=== PATIENT | female | born 1965 | race Caucasian/White ===

== ENCOUNTER → 2018-12-13 | Outpatient (CLI) | payer BC | LOC: MAMMO 14:55 | PROVIDERS: ATTEND Family Medicine | DX: Z12.31 Encounter for screening mammogram for malignant neoplasm of breast (principal) | CPT/HCPCS: 77067 ==

== ENCOUNTER → 2019-01-14 | Outpatient (CLI) | payer BC | LOC: US 13:57 | PROVIDERS: ATTEND Family Medicine | DX: N63.10 Unspecified lump in the right breast, unspecified quadrant (principal) ==

== ENCOUNTER → 2021-08-12 | Outpatient (CLI) | payer BC | LOC: MAMMO 08:51 | PROVIDERS: ATTEND Family Medicine | DX: Z12.31 Encounter for screening mammogram for malignant neoplasm of breast (principal) | CPT/HCPCS: 77067 ==

== ENCOUNTER 2021-11-06 15:19 | Inpatient (IN) | payer BC ==
[2021-11-06] VITALS (15 sets, daily range): BP systolic 80–122; BP diastolic 52–66
[~2021-11-06] VITALS: Ht 162.6 cm; Wt 90.3 kg
[2021-11-06] MEDS ORDERED: SODIUM CHLORIDE 0.9% 1000ML 1,000 ML IV STA (15:21)
[2021-11-06] MEDS ORDERED: CALCIUM GLUCONATE 10% INJ 4.65 MEQ in SODIUM CHLORIDE 0.9% 50ML 50 ML IV ONE (15:30)
[2021-11-06 15:37] LABS: BASOPHILS % 0.3 % (0.0-1.0); EOSINOPHILS # (AUTO) 0.1 (0.0-0.4); EOSINOPHILS % 0.8 % (0.0-6.0); HEMATOCRIT 33.7 % (34.2-44.1); HEMOGLOBIN 10.3 g/dL (12.0-16.0); LYMPHOCYTES # (AUTO) 1.2 (1.0-3.2); LYMPHOCYTES % 13.3 % (18.0-39.1); MEAN CORPUSCULAR HEMOGLOBIN 26.7 pg (28-32); MEAN CORPUSCULAR HGB CONC 30.6 g/dL (31-35); MEAN CORPUSCULAR VOLUME 87.3 fL (81-99); MONOCYTES # (AUTO) 0.4 (0.2-0.8); MONOCYTES % 4.4 % (4.4-11.3); NEUTROPHILS # (AUTO) 7.4 (2.1-6.9); NEUTROPHILS % 80.4 % (38.7-80.0); PLATELET COUNT 253 x10e3/uL (140-360); RED BLOOD COUNT 3.86 x10e6/uL (3.6-5.1); RED CELL DISTRIBUTION WIDTH 14.6 % (11.7-14.4)
[2021-11-06] MEDS ORDERED: SODIUM CHLORIDE 0.9% 1000ML 1,000 ML IV ONE (15:45)
[2021-11-06] MEDS ORDERED: GLUCAGON FOR INJ 1 MG VIAL IV ONE (15:45)
[2021-11-06] MEDS ORDERED: ONDANSETRON HCL INJ 2MG/ML 2ML 2 MG/ML VIAL IV STA (15:53)
[2021-11-06 16:15] LABS: ALBUMIN 3.2 g/dL (3.5-5.0); ANION GAP 16.2 mmol/L (8-16); CALCIUM 8.9 mg/dL (8.4-10.2); CREATININE, SERUM 2.38 mg/dL (0.57-1.11)
[2021-11-06] MEDS ORDERED: INSULIN REGULAR, HUMAN 3ML VL 100 UNIT in SODIUM CHLORIDE 0.9% 99 ML IV SCH ×2 (16:15)
[2021-11-06] MEDS ORDERED: POTASSIUM CHLORIDE 20MEQ/100ML 200 ML IV PRN (16:15)
[2021-11-06] MEDS ORDERED: DEXTROSE 5%/0.45% SOD CHL 1,000 ML IV SCH (16:15)
[2021-11-06] MEDS ORDERED: SODIUM CHLORIDE 0.9% 1000ML 1,000 ML IV SCH (16:15)
[2021-11-06] MEDS ORDERED: MAGNESIUM SULF 1GRAM/DEXTROSE 100 ML IV PRN (16:15)
[2021-11-06 16:19] LABS: CREATINE KINASE MB 0.8 ng/mL (0-5.0); POTASSIUM 6.2 mmol/L (3.5-5.1)
[2021-11-06] MEDS ORDERED: DEXTROSE 50% SYRINGE 50 ML IV STA (16:19)
[2021-11-06] MEDS ORDERED: INSULIN REGULAR, HUMAN 100 UNIT/1 ML IV STA (16:19)
[2021-11-06] MEDS ORDERED: ALBUTEROL SULF 0.083% NEB SOLN 3 ML NEB NEB STA (16:19)
[2021-11-06] MEDS ORDERED: CALCIUM GLUCONATE 10% INJ 0.465 MEQ/ML VIAL IV STA (16:19)
[2021-11-06] MEDS ORDERED: SODIUM BICARBONATE 8.4% INJ 50 ML SYR IV STA (16:19)
[2021-11-06] MEDS: PIPERACILLIN/TAZOBACTAM 3.375 GM in SODIUM CHLORIDE 0.9% 50ML 50 ML IV SCH ×2 (16:43→22:47)
[2021-11-06] MEDS ORDERED: ZOLPIDEM TARTRATE 5 MG TAB PO PRN (18:15)
[2021-11-06] MEDS ORDERED: ONDANSETRON HCL INJ 2MG/ML 2ML 2 MG/ML VIAL IV PRN (18:15)
[2021-11-06] MEDS ORDERED: LOSARTAN POTAS100 MG PO (18:37)
[2021-11-06] MEDS ORDERED: MVI PO (18:37)
[2021-11-06] MEDS ORDERED: COREG12.5 MG PO (18:37)
[2021-11-06] MEDS ORDERED: ROPINIROLE HCL1 MG PO (18:37)
[2021-11-06] MEDS ORDERED: VERAPAMIL 180 MG PO (18:37)
[2021-11-06] MEDS ORDERED: IRON 65 MG PO (18:37)
[2021-11-06] MEDS ORDERED: CRESTOR10 MG PO (18:37)
[2021-11-06] MEDS ORDERED: b12 (18:37)
[2021-11-06] MEDS ORDERED: PLAVIX75 MG PO (18:37)
[2021-11-06] MEDS ORDERED: SODIUM BICARBONATE PO (18:37)
[2021-11-06] MEDS ORDERED: VENLAFAXINE HCL75 MG PO (18:37)
[2021-11-06] MEDS ORDERED: OMEPRAZOLE40 MG PO (18:37)
[2021-11-06] MEDS ORDERED: LORATADINE10 MG PO (18:37)
[2021-11-06 19:17] LABS: ANION GAP 16.4 mmol/L (8-16); CALCIUM 8.7 mg/dL (8.4-10.2); CREATININE, SERUM 2.07 mg/dL (0.57-1.11); MAGNESIUM 2.2 MG/DL (1.3-2.1); POTASSIUM 5.4 mmol/L (3.5-5.1)
[2021-11-06] MEDS: DEXTROSE 5%/0.45% SOD CHL 1,000 ML IV SCH (19:26)
[2021-11-06] MEDS: INSULIN REGULAR, HUMAN 3ML VL 100 UNIT in SODIUM CHLORIDE 0.9% 99 ML IV SCH ×4 (20:05→22:03)
[2021-11-06 20:27] LABS: CREATINE KINASE MB 1.1 ng/mL (0-5.0)
[2021-11-07] VITALS (25 sets, daily range): BP systolic 80–138; BP diastolic 50–91
[2021-11-07] MEDS: ACETAMINOPHEN 325 MG TAB PO PRN (00:24)
[2021-11-07 00:38] LABS: CREATINE KINASE MB 1.2 ng/mL (0-5.0)
[2021-11-07] MEDS: INSULIN REGULAR, HUMAN 3ML VL 100 UNIT in SODIUM CHLORIDE 0.9% 99 ML IV SCH ×6 (02:00→04:05)
[2021-11-07] MEDS: DEXTROSE 5%/0.45% SOD CHL 1,000 ML IV SCH ×3 (03:21→22:58)
[2021-11-07] MEDS: PIPERACILLIN/TAZOBACTAM 3.375 GM in SODIUM CHLORIDE 0.9% 50ML 50 ML IV SCH ×4 (05:00→22:30)
[2021-11-07 05:07] LABS: BASOPHILS % 0.4 % (0.0-1.0); EOSINOPHILS # (AUTO) 0.2 (0.0-0.4); EOSINOPHILS % 2.3 % (0.0-6.0); HEMATOCRIT 29.5 % (34.2-44.1); HEMOGLOBIN 9.2 g/dL (12.0-16.0); LYMPHOCYTES # (AUTO) 1.9 (1.0-3.2); MEAN CORPUSCULAR HEMOGLOBIN 26.6 pg (28-32); MEAN CORPUSCULAR HGB CONC 31.2 g/dL (31-35); MEAN CORPUSCULAR VOLUME 85.3 fL (81-99); MONOCYTES # (AUTO) 0.5 (0.2-0.8); MONOCYTES % 6.3 % (4.4-11.3); NEUTROPHILS # (AUTO) 5.8 (2.1-6.9); NEUTROPHILS % 68.5 % (38.7-80.0); PLATELET COUNT 245 x10e3/uL (140-360); RED BLOOD COUNT 3.46 x10e6/uL (3.6-5.1); RED CELL DISTRIBUTION WIDTH 14.6 % (11.7-14.4)
[2021-11-07 05:51] LABS: ALBUMIN 2.9 g/dL (3.5-5.0); ANION GAP 14.1 mmol/L (8-16); CALCIUM 8.7 mg/dL (8.4-10.2); CREATININE, SERUM 1.98 mg/dL (0.57-1.11); POTASSIUM 4.1 mmol/L (3.5-5.1)
[2021-11-07 10:11] LABS: CREATINE KINASE MB 1.3 ng/mL (0-5.0)
[2021-11-07] MEDS ORDERED: DEXTROSE 50% SYRINGE 50 ML IV PRN (14:15)
[2021-11-07] MEDS ORDERED: INSULIN LISPRO 100 UNIT/1 ML 3ML VIAL SQ ONE (14:30)
[2021-11-07 14:57] LABS: FREE T4 (FREE THYROXINE) 0.94 ng/dL (0.8-1.8); THYROID STIMULATING HORMONE 1.617 uIU/mL (0.350-4.940)
[2021-11-07] MEDS: INSULIN LISPRO 100 UNIT/1 ML 3ML VIAL SQ SCH ×3 (16:30→21:00)
[2021-11-07] MEDS ORDERED: INSULIN GLARGINE 100 UNITS/ML VIAL SQ SCH ×2 (21:00)
[2021-11-07] MEDS: ROPINIROLE HCL 2 MG TAB PO SCH (21:07)
[2021-11-08] VITALS (21 sets, daily range): BP systolic 101–157; BP diastolic 59–76
[2021-11-08] MEDS: PIPERACILLIN/TAZOBACTAM 3.375 GM in SODIUM CHLORIDE 0.9% 50ML 50 ML IV SCH ×4 (05:04→23:03)
[2021-11-08 05:25] LABS: ANION GAP 17.1 mmol/L (8-16); CALCIUM 9.3 mg/dL (8.4-10.2); CREATININE, SERUM 2.15 mg/dL (0.57-1.11); POTASSIUM 5.1 mmol/L (3.5-5.1)
[2021-11-08] MEDS: INSULIN LISPRO 100 UNIT/1 ML 3ML VIAL SQ SCH ×7 (07:40→20:13)
[2021-11-08] MEDS: DEXTROSE 5%/0.45% SOD CHL 1,000 ML IV SCH ×3 (07:42→19:17)
[2021-11-08 15:30] LABS: CLARITY,URINE CLEAR (CLEAR); COLOR,URINE YELLOW (YELLOW); LEUKOCYTE ESTERASE ,URINE NEGATIVE (NEGATIVE); NITRITE,URINE NEGATIVE (NEGATIVE); PROTEIN,URINE DIPSTICK NEGATIVE (NEGATIVE)
[2021-11-08 15:31] LABS: KETONES,URINE NEGATIVE (NEGATIVE); URINE UROBILINOGEN 0.2 mg/dL (0.2 - 1)
[2021-11-08 15:58] LABS: BACTERIA,URINE FEW /HPF; EPITHELIAL CELLS,URINE FEW /LPF; RBC,URINE 0-5 /HPF (0-5); WBC,URINE (MAN) 0-5 /HPF (0-5)
[2021-11-08] MEDS: ACETAMINOPHEN 325 MG TAB PO PRN (19:17)
[2021-11-08] MEDS: ROPINIROLE HCL 2 MG TAB PO SCH (20:10)
[2021-11-08] MEDS ORDERED: INSULIN GLARGINE 100 UNITS/ML VIAL SQ SCH (21:00)
[2021-11-09] VITALS (13 sets, daily range): BP systolic 123–158; BP diastolic 65–95
[2021-11-09] MEDS: PIPERACILLIN/TAZOBACTAM 3.375 GM in SODIUM CHLORIDE 0.9% 50ML 50 ML IV SCH ×4 (05:21→22:24)
[2021-11-09 06:08] LABS: BASOPHILS % 0.5 % (0.0-1.0); EOSINOPHILS # (AUTO) 0.2 (0.0-0.4); EOSINOPHILS % 3.8 % (0.0-6.0); HEMATOCRIT 34.1 % (34.2-44.1); HEMOGLOBIN 10.3 g/dL (12.0-16.0); LYMPHOCYTES # (AUTO) 1.5 (1.0-3.2); LYMPHOCYTES % 25.6 % (18.0-39.1); MEAN CORPUSCULAR HEMOGLOBIN 26.4 pg (28-32); MEAN CORPUSCULAR HGB CONC 30.2 g/dL (31-35); MEAN CORPUSCULAR VOLUME 87.4 fL (81-99); MONOCYTES # (AUTO) 0.5 (0.2-0.8); NEUTROPHILS # (AUTO) 3.6 (2.1-6.9); NEUTROPHILS % 61.9 % (38.7-80.0); PLATELET COUNT 242 x10e3/uL (140-360); RED CELL DISTRIBUTION WIDTH 14.5 % (11.7-14.4)
[2021-11-09 06:52] LABS: CALCIUM 9.1 mg/dL (8.4-10.2); CREATININE, SERUM 1.88 mg/dL (0.57-1.11)
[2021-11-09] MEDS: INSULIN LISPRO 100 UNIT/1 ML 3ML VIAL SQ SCH ×7 (07:47→22:26)
[2021-11-09] MEDS: ACETAMINOPHEN 325 MG TAB PO PRN (07:50)
[2021-11-09] MEDS: DEXTROSE 5%/0.45% SOD CHL 1,000 ML IV SCH (09:30)
[2021-11-09] MEDS: PANTOPRAZOLE SOD 40 MG TABEC PO SCH (11:34)
[2021-11-09] MEDS ORDERED: INSULIN LISPRO 100 UNIT/1 ML 3ML VIAL SQ SCH (16:30)
[2021-11-09] MEDS ORDERED: INSULIN GLARGINE 100 UNITS/ML VIAL SQ SCH (21:00)
[2021-11-09] MEDS: ROPINIROLE HCL 2 MG TAB PO SCH (22:24)
[2021-11-10] VITALS (9 sets, daily range): BP systolic 129–158; BP diastolic 62–80
[2021-11-10] MEDS: PIPERACILLIN/TAZOBACTAM 3.375 GM in SODIUM CHLORIDE 0.9% 50ML 50 ML IV SCH ×4 (06:48→22:30)
[2021-11-10] MEDS: INSULIN LISPRO 100 UNIT/1 ML 3ML VIAL SQ SCH ×7 (07:52→20:16)
[2021-11-10] MEDS: PANTOPRAZOLE SOD 40 MG TABEC PO SCH (07:52)
[2021-11-10] MEDS ORDERED: SIMVASTATIN 20 MG TAB PO SCH (09:00)
[2021-11-10] MEDS: CARVEDILOL 12.5 MG TAB PO SCH ×2 (10:09→16:55)
[2021-11-10] MEDS: LORATADINE 10 MG TAB PO SCH (10:09)
[2021-11-10] MEDS: VENLAFAXINE HCL 75 MG TAB PO SCH ×2 (10:10→16:56)
[2021-11-10] MEDS: CLOPIDOGREL BISULFATE 75 MG TAB PO SCH (10:10)
[2021-11-10 14:55] LABS: ANION GAP 15.7 mmol/L (8-16); CREATININE, SERUM 2.14 mg/dL (0.57-1.11); POTASSIUM 4.7 mmol/L (3.5-5.1)
[2021-11-10] MEDS ORDERED: SODIUM CHLORIDE 0.9% 1000ML 0 ML ONE (16:48)
[2021-11-10] MEDS: SODIUM CHLORIDE 0.45% 1,000 ML IV SCH (16:51)
[2021-11-10] MEDS ORDERED: INSULIN GLARGINE 100 UNITS/ML VIAL SQ SCH (21:00)
[2021-11-10] MEDS: SIMVASTATIN 20 MG TAB PO SCH (22:30)
[2021-11-10] MEDS: ROPINIROLE HCL 2 MG TAB PO SCH (22:30)
[2021-11-10] MEDS: ACETAMINOPHEN 325 MG TAB PO PRN (22:48)
[2021-11-11] VITALS: BP 125/58
[2021-11-11] MEDS: SODIUM CHLORIDE 0.45% 1,000 ML IV SCH (01:31)
[2021-11-11 04:02] VITALS: BP 111/70
[2021-11-11] MEDS: PIPERACILLIN/TAZOBACTAM 3.375 GM in SODIUM CHLORIDE 0.9% 50ML 50 ML IV SCH (05:40)
[2021-11-11 05:49] LABS: BASOPHILS % 0.5 % (0.0-1.0); EOSINOPHILS # (AUTO) 0.3 (0.0-0.4); EOSINOPHILS % 4.4 % (0.0-6.0); HEMATOCRIT 31.5 % (34.2-44.1); HEMOGLOBIN 9.8 g/dL (12.0-16.0); LYMPHOCYTES # (AUTO) 1.6 (1.0-3.2); LYMPHOCYTES % 26.2 % (18.0-39.1); MEAN CORPUSCULAR HEMOGLOBIN 26.4 pg (28-32); MEAN CORPUSCULAR HGB CONC 31.1 g/dL (31-35); MEAN CORPUSCULAR VOLUME 84.9 fL (81-99); MONOCYTES # (AUTO) 0.5 (0.2-0.8); MONOCYTES % 8.8 % (4.4-11.3); NEUTROPHILS # (AUTO) 3.7 (2.1-6.9); NEUTROPHILS % 59.8 % (38.7-80.0); PLATELET COUNT 262 x10e3/uL (140-360); RED BLOOD COUNT 3.71 x10e6/uL (3.6-5.1); RED CELL DISTRIBUTION WIDTH 14.4 % (11.7-14.4)
[2021-11-11 06:05] LABS: ANION GAP 15.2 mmol/L (8-16); CALCIUM 9.2 mg/dL (8.4-10.2); CREATININE, SERUM 1.94 mg/dL (0.57-1.11); POTASSIUM 4.2 mmol/L (3.5-5.1)
[2021-11-11] MEDS: INSULIN LISPRO 100 UNIT/1 ML 3ML VIAL SQ SCH ×2 (07:30→09:46)
[2021-11-11 08:16] VITALS: BP 139/64
[2021-11-11] MEDS ORDERED: ONDANSETRON HCL 4 MG ORAL DISINTEGRATING TAB PO PRN (08:30)
[2021-11-11 08:46] VITALS: BP 139/64
[2021-11-11] MEDS: CARVEDILOL 12.5 MG TAB PO SCH (09:08)
[2021-11-11] MEDS: PANTOPRAZOLE SOD 40 MG TABEC PO SCH (09:08)
[2021-11-11] MEDS: CLOPIDOGREL BISULFATE 75 MG TAB PO SCH (09:08)
[2021-11-11] MEDS: LORATADINE 10 MG TAB PO SCH (09:08)
[2021-11-11] MEDS: VENLAFAXINE HCL 75 MG TAB PO SCH (09:08)
[2021-11-11] MEDS: SIMVASTATIN 20 MG TAB PO SCH (09:09)
== END 2021-11-11 10:08 | disposition home or self-care (01) | DRG 637 ==
LOC: ER 15:21 → ERHOLD 16:15 → ICU 17:30 → MED/SURG 11-09 16:35
PROVIDERS: ADMIT Internal Medicine; ATTEND Internal Medicine
PROC: 02HV33Z Insertion of Infusion Device into Superior Vena Cava, Percutaneous Approach (ICD-10-PCS; principal; 2021-11-06)
DX: E11.10 Type 2 diabetes mellitus with ketoacidosis without coma (principal); N17.0 Acute kidney failure with tubular necrosis; R57.8 Other shock; I48.20 Chronic atrial fibrillation, unspecified; Z88.2 Allergy status to sulfonamides; E87.5 Hyperkalemia; Z96.41 Presence of insulin pump (external) (internal); E86.0 Dehydration; I10 Essential (primary) hypertension; E78.5 Hyperlipidemia, unspecified; D50.0 Iron deficiency anemia secondary to blood loss (chronic); Z85.53 Personal history of malignant neoplasm of renal pelvis; Z90.5 Acquired absence of kidney; K21.9 Gastro-esophageal reflux disease without esophagitis; G47.30 Sleep apnea, unspecified; E11.42 Type 2 diabetes mellitus with diabetic polyneuropathy; T38.3X5A Adverse effect of insulin and oral hypoglycemic [antidiabetic] drugs, initial encounter
CPT/HCPCS: 36415; 71045; 80048; 80053; 81001; 82550; 82553; 82948; 83036; 83605; 83735; 84439; 84443; 84484; 85025; 87040; 93005; 93306; 94640; 94799; 99285; J1610; J1815; J1817; J2405; J2543; J7030; J7050; J7799; U0002

== ENCOUNTER 2022-11-22 13:24 | Emergency (ER) | payer BC ==
[~2022-11-22] VITALS: Ht 315 cm; Wt 90.3 kg
[~2022-11-22 13:24] MED LIST: COREG12.5 MG PO; CRESTOR10 MG PO; IRON 65 MG PO; LORATADINE10 MG PO; LOSARTAN POTAS100 MG PO; MVI PO; OMEPRAZOLE40 MG PO; PLAVIX75 MG PO; ROPINIROLE HCL1 MG PO; SODIUM BICARBONATE PO; VENLAFAXINE HCL75 MG PO; VERAPAMIL 180 MG PO; b12
== END 2022-11-22 14:34 | disposition home or self-care (01) ==
LOC: ER 13:37
DX: M54.31 Sciatica, right side (principal); E11.9 Type 2 diabetes mellitus without complications; Z85.528 Personal history of other malignant neoplasm of kidney
CPT/HCPCS: 99282

== ENCOUNTER → 2023-10-07 | Outpatient (REF) | payer BC | LOC: MAMMO 08:19 | PROVIDERS: ATTEND Family Medicine | DX: Z12.31 Encounter for screening mammogram for malignant neoplasm of breast (principal) | CPT/HCPCS: 77067 ==